=== PATIENT | female | born 1990 | race Caucasian/White ===

== ENCOUNTER 2016-07-04 18:02 | Emergency (ER) | payer SELFPAY ==
[2016-07-04 18:19] VITALS: BP 134/93
[2016-07-04 18:51] LABS: Bilirubin,Urine NEG (Negative); Blood,Urine NEG (Negative); Ketones,Urine NEG (Negative); Leukocyte Esterase,Urine NEG (Negative); Mucus,Urine FEW /HPF; Nitrite,Urine NEG (Negative); Protein,Urine <15 mg/dL mg/dL (Negative); RBC,Urine < 1.0 /HPF (0.0-6.0); Urobilinogen,Urine < 2.0 mg/dL (<2.0); WBC,Urine < 1.0 /HPF (0.0-6.0)
[2016-07-04 19:02] LABS: Basophils % (Auto) 0.9 % (0.0-1.8); Hematocrit 41.4 % (30.3-42.9); Hemoglobin 13.4 gm/dl (10.1-14.3); Mean Corpuscular HGB Conc 32 % (30-34); Mean Corpuscular Hemoglobin 27 pg (28-32); Mean Corpuscular Volume 82 fl (79-97); Platelet Count 350 K/mm3 (140-440); Red Blood Count 5.06 M/mm3 (3.65-5.03); Red Cell Distribution Width 15.5 % (13.2-15.2); White Blood Count 11.9 K/mm3 (4.5-11.0)
[2016-07-04 19:32] LABS: Alanine Aminotransferase 10 units/L (7-56); Albumin 4.1 g/dL (3.9-5); Albumin/Globulin Ratio 1.3 %; Alkaline Phosphatase 70 units/L (35-129); Anion Gap 18 mmol/L; Bilirubin,Total 0.2 mg/dL (0.1-1.2); Blood Urea Nitrogen 11 mg/dL (7-17); Calcium 9.2 mg/dL (8.4-10.2); Carbon Dioxide 26 mmol/L (22-30); Chloride 97.6 mmol/L (98-107); Glucose 110 mg/dL (65-100); Lipase 35 units/L (13-60); Potassium 4.3 mmol/L (3.6-5.0); Sodium 137 mmol/L (137-145); Total Protein 7.3 g/dL (6.3-8.2)
--- NOTE | 2016-07-07 19:37 | ED Elopement Review ---
ED Pt Elopement review - Results review Lab results: Laboratory Tests 07/04/16 07/04/16 07/04/16 18:35 18:44 18:44 WBC 11.9 H RBC 5.06 H Hgb 13.4 Hct 41.4 MCV 82 MCH 27 L MCHC 32 RDW 15.5 H Plt Count 350 Lymph % (Auto) 19.3 Roberts % (Auto) 4.3 Eos % (Auto) 15.0 H Baso % (Auto) 0.9 Lymph # 2.3 Roberts # 0.5 Eos # 1.8 H Baso # 0.1 Seg Neutrophils % 60.5 Seg Neutrophils # 7.2 Sodium 137 Potassium 4.3 Chloride 97.6 L Carbon Dioxide 26 Anion Gap 18 BUN 11 Creatinine 0.5 L Estimated GFR > 60 BUN/Creatinine Ratio 22.00 Glucose 110 H Calcium 9.2 Total Bilirubin 0.2 AST 17 ALT 10 Alkaline Phosphatase 70 Total Protein 7.3 Albumin 4.1 Albumin/Globulin Ratio 1.3 Lipase 35 Urine Color Yellow Urine Turbidity Clear Urine pH 7.0 Ur Specific [place] 1.018 Urine Protein <15 mg/dl Urine Glucose (UA) Neg Urine Ketones Neg Urine Blood Neg Urine Nitrite Neg Urine Bilirubin Neg Urine Urobilinogen < 2.0 Ur Leukocyte Esterase Neg Urine WBC (Auto) < 1.0 Urine RBC (Auto) < 1.0 U Epithel Cells (Auto) 7.0 Urine Mucus Few - Call Back decision Pt Call Back Decision: No action required
== END 2016-07-04 18:45 | disposition left against medical advice (07) ==
LOC: ED 18:02
DX: R10.9 Unspecified abdominal pain (principal); R11.0 Nausea; Z53.21 Procedure and treatment not carried out due to patient leaving prior to being seen by health care provider
CPT/HCPCS: 36415; 80053; 81001; 83690; 85025